=== PATIENT | male | born 1985 | race Caucasian/White ===

== ENCOUNTER 2019-04-25 10:52 | Emergency (ER) | payer SELFPAY ==
[~2019-04-25] VITALS: Ht 172.7 cm; Wt 119.3 kg
--- NOTE | 2019-04-25 10:57 | NUR ---
PT [id number] AND [employer], FROM HOME, AGRRESSIVE BEHAVIOR, 20 MG VERSED GIVEN BY EMS, PT IS AAOX2, NOTED RESTLESSNESS, HOOKED TO MONITOR, KEPT RESTED AND COMFORTABLE, WILL CONTINUE TO MONITOR.
--- NOTE | 2019-04-25 11:02 | NUR ---
PT IS ON [address] ESPINOZA.
--- NOTE | 2019-04-25 11:09 | NUR ---
SEEN AND EXAMINED BY .
[2019-04-25] MEDS: DIAZEPAM 10 MG TABLET PO ONE (13:07)
[2019-04-25] MEDS ORDERED: HALOPERIDOL LACTATE INJ 5 MG/ML VIAL ONE (13:44)
[2019-04-25] MEDS ORDERED: LORAZEPAM INJ 2 MG/ML VIAL ONE (13:45)
[2019-04-25] MEDS: LORAZEPAM INJ 2 MG/ML VIAL IM ONE (13:53)
[2019-04-25] MEDS: HALOPERIDOL LACTATE INJ 5 MG/ML VIAL IM ONE (13:53)
--- NOTE | 2019-04-25 16:32 | NUR ---
PT ASLEEP ON BED, EASILY AROUSABLE, V/S STABLE, KEPT RESTED AND COMFORTABLE, WILL CONTINUE TO MONITOR.
[2019-04-26 04:48] VITALS: BP 118/71
== END 2019-04-26 04:48 | disposition home or self-care (01) ==
LOC: ER 10:55
DX: F15.129 Other stimulant abuse with intoxication, unspecified (principal); F41.9 Anxiety disorder, unspecified; F32.9 Major depressive disorder, single episode, unspecified
CPT/HCPCS: 96372 ×2; 99283; J1630; J2060

== ENCOUNTER 2019-08-28 19:24 | Emergency (ER) | payer MEDICAID ==
[~2019-08-28] VITALS: Ht 177.8 cm; Wt 122.0 kg
--- NOTE | 2019-08-28 19:28 | NUR ---
PT AAOX4. AMBULATORY, C/O ANXIETY S/P METH USE. PLACED ON MONITOR AND PULSE OX. VSS. MD AT BEDSIDE FOR EVAL.
[2019-08-28] MEDS ORDERED: LORAZEPAM 1 MG TABLET PO ONE (20:00)
[2019-08-28] MEDS ORDERED: LORAZEPAM 1 MG TABLET ONE (20:05)
--- NOTE | 2019-08-28 20:10 | NUR ---
AMBULATED TO RESTROOM FOR URINE.
--- NOTE | 2019-08-28 20:10 | NUR ---
LAB COLLECTED BY DERMATOLOGIST AND DERMATOPATHOLOGIST
[2019-08-28 20:14] LABS: BASOPHILS # (AUTO) 0.1 /CMM (0.0-0.2); BASOPHILS % (AUTO) 1.2 % (0.0-2.0); EOSINOPHILS % (AUTO) 1.3 % (0.0-6.0); HEMATOCRIT 45 % (39-51); HEMOGLOBIN 15.1 g/dL (13.5-17.5); LYMPHOCYTES # (AUTO) 2.2 /CMM (0.8-4.8); LYMPHOCYTES % (AUTO) 25.5 % (20.0-44.0); MEAN CORPUSCULAR HGB CONC 34 g/dl (31.0-36.0); MEAN CORPUSCULAR VOLUME 85 fL (80-96); MONOCYTES # (AUTO) 0.4 /CMM (0.1-1.30); MONOCYTES % (AUTO) 4.5 % (2.0-12.0); NEUTROPHILS # (AUTO) 5.8 /CMM (1.8-8.9); NEUTROPHILS % (AUTO) 67.5 % (43.0-81.0); PLATELET COUNT (AUTO) 243 /CMM (150-450); RED BLOOD CELL COUNT(AUTO) 5.29 MIL/uL (4.5-6.0); WHITE BLOOD COUNT (AUTO) 8.6 K/uL (4.3-11.0)
[2019-08-28 20:22] LABS: CARBON DIOXIDE 27 mmol/L (21-32); CHLORIDE 100 mmol/L (98-107); GLUCOSE 106 mg/dL (74-106); POTASSIUM 3.4 mmol/L (3.5-5.1); SODIUM SERUM 136 mmol/L (136-145); UREA NITROGEN, BLOOD 7 mg/dL (7-18)
[2019-08-28 20:33] LABS: ACETAMINOPHEN < 2 ug/ml (10-30); ALANINE AMINOTRANSFERASE 32 U/L (12-78); ALBUMIN 4.1 g/dL (3.4-5.0); ALCOHOL, BLOOD < 3 mg/dL (0-0); ALKALINE PHOSPHATASE 56 U/L (46-116); ASPARTATE AMINOTRANSFERASE 25 U/L (15-37); BILIRUBIN,DIRECT 0.1 mg/dL (0.0-0.2); BILIRUBIN,TOTAL 0.6 mg/dL (0.2-1.0); SALICYLATE 0.9 mg/dL (2.8-20.0)
[2019-08-28] MEDS ORDERED: POTASSIUM CHLORIDE 20 MEQ TAB.PRT.SR PO ONE ×2 (20:58→21:00)
[2019-08-28 21:02] LABS: APPEARANCE,URINE CLEAR (CLEAR); BILIRUBIN,URINE NEGATIVE (NEGATIVE); BLOOD, URINE NEGATIVE Ery/uL (NEGATIVE); COLOR,URINE YELLOW (YELLOW); KETONES,URINE NEGATIVE (NEGATIVE); LEUKOCYTE ESTERASE ,URINE NEGATIVE (NEGATIVE); NITRITE, URINE NEGATIVE (NEGATIVE); PROTEIN,URINE NEGATIVE (NEGATIVE); UGLUCOSE NEGATIVE (NEGATIVE); UROBILINOGEN,URINE 0.2 EU/dL (0.2)
--- NOTE | 2019-08-28 21:54 | NUR ---
Patient discharged to home in stable condition. Written and verbal after care instructions given. Patient verbalizes understanding of instruction and RX. PT ambulatory with a steady gait. VSS. Left with two friends.
[2019-08-28 21:55] VITALS: BP 132/82
== END 2019-08-28 21:56 | disposition home or self-care (01) ==
LOC: ER 19:29
DX: F15.10 Other stimulant abuse, uncomplicated (principal); F41.9 Anxiety disorder, unspecified; E87.6 Hypokalemia; F32.9 Major depressive disorder, single episode, unspecified; R00.0 Tachycardia, unspecified
CPT/HCPCS: 36415; 80048; 80076; 80305; 80307; 80329; 81001; 82550; 85025; 99283; G0480; 81000-TC

== ENCOUNTER 2019-09-08 14:48 | Emergency (ER) | payer SELFPAY ==
[~2019-09-08] VITALS: Ht 177.8 cm; Wt 122.0 kg
--- NOTE | 2019-09-08 16:20 | NUR ---
PT REC'D TO ER VIA EMS METH PT CAME FROM HOME SAW SNAKES CALLED 911 BLOOD DRAN SENT TO LAB PILAR DUTTA T TO LAB FRIEND AT BEDSIDE PT QUIET .. STATED DOEN'T WANT TO HURT HIMSELD
[2019-09-08 16:29] LABS: BASOPHILS # (AUTO) 0.2 /CMM (0.0-0.2); BASOPHILS % (AUTO) 1.1 % (0.0-2.0); EOSINOPHILS % (AUTO) 1.2 % (0.0-6.0); HEMATOCRIT 48 % (39-51); HEMOGLOBIN 15.6 g/dL (13.5-17.5); LYMPHOCYTES # (AUTO) 2.4 /CMM (0.8-4.8); LYMPHOCYTES % (AUTO) 14.2 % (20.0-44.0); MEAN CORPUSCULAR HGB CONC 33 g/dl (31.0-36.0); MEAN CORPUSCULAR VOLUME 86 fL (80-96); MONOCYTES # (AUTO) 0.8 /CMM (0.1-1.30); MONOCYTES % (AUTO) 4.7 % (2.0-12.0); NEUTROPHILS # (AUTO) 13.3 /CMM (1.8-8.9); NEUTROPHILS % (AUTO) 78.8 % (43.0-81.0); PLATELET COUNT (AUTO) 269 /CMM (150-450); RED BLOOD CELL COUNT(AUTO) 5.51 MIL/uL (4.5-6.0); WHITE BLOOD COUNT (AUTO) 16.9 K/uL (4.3-11.0)
[2019-09-08] MEDS ORDERED: OLANZAPINE 10 MG VIAL IM ONE ×4 (16:29→18:12)
[2019-09-08 16:39] LABS: APPEARANCE,URINE Clear (CLEAR); BILIRUBIN,URINE SMALL (NEGATIVE); BLOOD, URINE Negative Ery/uL (NEGATIVE); COLOR,URINE Yellow (YELLOW); KETONES,URINE 80 (NEGATIVE); LEUKOCYTE ESTERASE ,URINE Negative (NEGATIVE); NITRITE, URINE Negative (NEGATIVE); PROTEIN,URINE 30 mg/dl (NEGATIVE); UGLUCOSE Negative (NEGATIVE); UROBILINOGEN,URINE 0.2 EU/dL (0.2)
[2019-09-08 16:41] LABS: ALANINE AMINOTRANSFERASE 31 U/L (12-78); ALBUMIN 4.4 g/dL (3.4-5.0); ALCOHOL, BLOOD < 3 mg/dL (0-0); ALKALINE PHOSPHATASE 73 U/L (46-116); ASPARTATE AMINOTRANSFERASE 31 U/L (15-37); BILIRUBIN,DIRECT 0.2 mg/dL (0.0-0.2); BILIRUBIN,TOTAL 0.8 mg/dL (0.2-1.0); CALCIUM, SERUM 9.7 mg/dL (8.5-10.1); CARBON DIOXIDE 25 mmol/L (21-32); CHLORIDE 98 mmol/L (98-107); CREATININE 1.3 mg/dL (0.6-1.3); GLUCOSE 85 mg/dL (74-106); POTASSIUM 4.3 mmol/L (3.5-5.1); SODIUM SERUM 136 mmol/L (136-145); TOTAL PROTEIN, SERUM 8.6 g/dL (6.4-8.2); UREA NITROGEN, BLOOD 19 mg/dL (7-18)
[2019-09-08 16:42] LABS: ACETAMINOPHEN 0 ug/ml (10-30); SALICYLATE 2.3 mg/dL (2.8-20.0)
[2019-09-08 16:45] LABS: BACTERIA,URINE Few /HPF (None Seen); MUCUS,URINE Few /LPF (None Seen); RBC,URINE 0-2 /HPF (0-2); SPERM,URINE Rare /HPF (None Seen); SQUAMOUS EPITHELIAL CELL,UR Few /HPF (None Seen); WBC,URINE 0-2 /HPF (0-3)
--- NOTE | 2019-09-08 16:47 | NUR ---
ZYPREXA GIVEN PER MD HOOKSER
--- NOTE | 2019-09-08 17:00 | NUR ---
PT SLEEPING RESP EVEN UNLABORED
--- NOTE | 2019-09-08 17:44 | NUR ---
.PT AWAKE PALYING ON HER PHONE QUIETLY
--- NOTE | 2019-09-08 17:50 | NUR ---
PT STTED WANTS TO GO TO REHAB . QUIET CALM RESTING
--- NOTE | 2019-09-08 18:15 | NUR ---
PT GIVEN ZYPREXA 10 MG IM 2ND DOSAGE PER MD
--- NOTE | 2019-09-08 19:30 | NUR ---
REPORT RECEIVED FROM ANEUDY PARISI
--- NOTE | 2019-09-08 20:48 | NUR ---
TO CT ON [place]
--- NOTE | 2019-09-08 22:39 | NUR ---
ATTEMPTED TO CONTACT PT'S FRIEND ESTHER
--- NOTE | 2019-09-09 | NUR ---
ATTEMPTED TO CONTACT AMENA BERRIOS FOR EVALUATION. LEFT MESSAGE TO RETURN CALL
--- NOTE | 2019-09-09 00:13 | NUR ---
AMENA BERRIOS EN ROUTE FOR EVALUATION
--- NOTE | 2019-09-09 01:45 | NUR ---
PT MUMBLING AT BEDSIDE
[2019-09-09] MEDS ORDERED: OLANZAPINE 10 MG VIAL IM ONE ×2 (04:48→05:00)
--- NOTE | 2019-09-09 05:00 | NUR ---
PT NOTED WITH PARANOIA AND HALLUCINATING THAT THERE IS A SNAKE ON HIS STOMACH. MD MADE AWARE. RECEIVED VERBAL ORDER FOR XYPREXA 10 MG IM X 1. NOTED AND CARRIED OUT
--- NOTE | 2019-09-09 05:32 | NUR ---
Patient is resting comfortably in bed with eyes closed. Easily aroused.
--- NOTE | 2019-09-09 08:03 | NUR ---
AGUSTINA BECKWITH AT BEDSIDE FOR EVAL.
[2019-09-09] MEDS ORDERED: LORAZEPAM 1 MG TABLET ONE (09:47)
--- NOTE | 2019-09-09 09:54 | NUR ---
Patient discharged to home with friend Chandan Block [phone] in stable condition. Written and verbal after care instructions given. Patient and friend verbalizes understanding of instruction.
[2019-09-09 09:56] VITALS: BP 129/78
[2019-09-09] MEDS ORDERED: LORAZEPAM 1 MG TABLET PO ONE (10:00)
== END 2019-09-09 09:57 | disposition home or self-care (01) ==
LOC: ER 14:48
DX: F29 Unspecified psychosis not due to a substance or known physiological condition (principal); F41.9 Anxiety disorder, unspecified; F32.9 Major depressive disorder, single episode, unspecified; F15.10 Other stimulant abuse, uncomplicated
CPT/HCPCS: 36415; 80048; 80076; 80305; 80307; 80329; 81001; 85025; 96372 ×3; 99284; G0480; J3490 ×3; 81000-TC